=== PATIENT | male | born 1950 | race Caucasian/White ===

== ENCOUNTER 2021-12-16 06:25 | Emergency (ER) | payer MEDICARE ==
[~2021-12-16] VITALS: Ht 177.8 cm; Wt 70.3 kg
[2021-12-16] MEDS ORDERED: LIDOCAINE 2% JEL UROJET 10 ML MM ONE (06:49)
--- NOTE | 2021-12-16 06:54 | NUR ---
PT BIBSELF FROM HOME C/O URINARY RETENTION, "PRESSURE IN BLADDER", LAST URINATED 1999, 07/24 PAIN. HX BPH. PT A/O X 4, RR EVEN AND UNLABORED, NO SOB NOTED. PATIENT CONNECTED TO MONITORS. WILL CONTINUE TO MONITOR.
--- NOTE | 2021-12-16 06:54 | NUR ---
RN AT BEDSIDE F/C ORDERED
--- NOTE | 2021-12-16 07:05 | NUR ---
F/C 16FR INSERTED WITH YELLOW URINE OUTPUT; PATENT AND INTACT.
--- NOTE | 2021-12-16 07:15 | NUR ---
URINE SAMPLE COLLECTED AND SENT TO LAB
[2021-12-16 07:51] LABS: BILIRUBIN,URINE NEGATIVE (NEGATIVE); COLOR,URINE YELLOW (YELLOW); LEUKOCYTE ESTERASE ,URINE NEGATIVE (NEGATIVE); NITRITE, URINE NEGATIVE (NEGATIVE); PROTEIN,URINE NEGATIVE (NEGATIVE); UGLUCOSE NEGATIVE (NEGATIVE); UROBILINOGEN,URINE 0.2 EU/dL (0.2)
[2021-12-16] MEDS ORDERED: ATOR40TA PO (07:51)
[2021-12-16] MEDS ORDERED: TERA2CAP4 PO (07:51)
[2021-12-16] MEDS ORDERED: LEVO125T PO (07:51)
[2021-12-16] MEDS ORDERED: TICA90TA PO (07:51)
--- NOTE | 2021-12-16 08:10 | NUR ---
URINE BAG REPLACED.
--- NOTE | 2021-12-16 08:15 | NUR ---
CLINICALS AND UA FAXED TO PT MD PER PT REQUEST.
[2021-12-16 08:22] VITALS: BP 115/66
--- NOTE | 2021-12-16 08:22 | NUR ---
Patient discharged to home in stable condition. Written and verbal after care instructions given. Patient verbalizes understanding of instruction.
== END 2021-12-16 08:23 | disposition home or self-care (01) ==
LOC: ER 06:29
DX: R33.9 Retention of urine, unspecified (principal); E78.00 Pure hypercholesterolemia, unspecified; Z95.5 Presence of coronary angioplasty implant and graft; Z85.850 Personal history of malignant neoplasm of thyroid; Z79.899 Other long term (current) drug therapy
CPT/HCPCS: 51702; 81003; 99284; J3490